=== PATIENT | male | born 1940 | race Caucasian/White ===

== ENCOUNTER → 2016-04-19 | Outpatient (CLI) | payer MEDICARE, MEDICAID ==
--- NOTE | 2016-04-19 11:15 | ST Modified Barium Swallow ---
Recommendation - Recommendations Recommendations: 1) DIET: Mechanical soft solids and thin liquids. 2) STRATEGIES: Alternate bites and sips. 3) Follow-up with treating speech therapist. 4) Follow-up with referring MD. SUMMARY: Pt presents with a mild- moderate pharngeal dysphagia characterized by reduced epiglottic inversion, reduced hyolaryngeal excursion, and reduced laryngeal elevation resulting in mild residuals in the valleculae. Residuals in valleculae observed to clear with alternating bites and sips. Pt reported sensation of residuals and also able to clear with mulitple independently initiated swallows. Pt frequently reported sticking in chest and neck with no radiographic findings of residuals in pharyngeal cavity or in esophagus-per RA. Pt also presented with change in vocal quality with no instances of penetration or aspiration observed. Medical Diagnoses - Medical Diagnoses Medical Diagnosis Description & ICD-10 Code(s): dysphagia Other Medical Diagnoses/Co-Morbidities: cva, hiatal hernia, hunter's esophagus - ICD-10 Tx Diagnosis Coding (1) Dysphagia, oropharyngeal phase ICD-10 Code(s): R13.12 - DYSPHAGIA, OROPHARYNGEAL PHASE (2) Dysphagia, pharyngeal phase ICD-10 Code(s): R13.13 - DYSPHAGIA, PHARYNGEAL PHASE (3) Dysphagia, pharyngoesophageal phase ICD-10 Code(s): R13.14 - DYSPHAGIA, PHARYNGOESOPHAGEAL PHASE ST Modified Barium Swallow - General Date: 04/19/16 Referring Physician: Dr Vergara Risks/Precautions: Falls - using hospital wheelchair Date of Onset: 04/19/13 Reason for Referral: dysphagia - History History obtained from: Patient -: Medical - Pt reports coughing and choking on solids and liquids, endorses globus sensation in lower neck and chest. Reports history of PNA x3, most recent approximately 1 week ago. Pt also reports bronchitis "several times." Pt reports onset of swallowing symptoms began approximately 2-3 years ago. Pt reports eating only soft foods at home. Pt states does not eat meats whole and does not eat bread. 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 Medications: alphagan, aspirin, combivent, docusate sodium, eliquis, escitalopram, incruse ellipta, lansoprazole, levothyroxine, multiple vitamins, nu-iron, oxycodone-acetaminophen. Allergies: erythromycin, tamsulosin - Functional Status Prior Functional Status: INDEPENDENT: feeding Current Functional Limitations: feeding - Subjective Patient/caregiver goal(s): safe swallow, r/o aspiration Cognitive-Linguistic Function: Functional Speech Intelligibility: Moderately dysarthric Current Nutritional Means: PO Current PO diet: Mechanical- ground Current symptoms: Coughing, Pneumonia, c/o Globus sensation Pain: 5/5 - arthritis-all over - Objective Assessment: Upright, Left Lateral - Food Trials Used Food trials used: Thin liquids, Pureed, Soft solids The patient: Was Able to Self Feed - Oral-Motor Skills Dentition: Edentulous Velo-pharyngeal function: Unremarkable Laryngeal Function: Volitional Cough, Volitional Swallow - Assessment Oral prep: Adeq, for consist. tested Labial closure: Adequate Leakage: None Mastication: Adequate Lingual Movement: Normal Oral stage: Normal for this Procedure - Pharyngeal Stage Initiation of Pharyngeal Stage Reflex: Normal Decreased laryngeal elevation: Yes - moderate-severe Reduced Velopharyngeal Closure: no Reduced pressure generation: No reduced tongue-based retraction: No Pre-swallow pooling in valleculae: None Pre-Swallow pooling in pyriforms: None Reduced Thyro-Hyoid approximation: Yes - mod-severe Reduced epiglottic excursion: Yes - significant Reduced pharyngeal peristalsis/contraction: No Post-swallow residulas vallecular: Mild - on puree and soft solids Post-Swallow residuals in pyriforms: None - Fall Risk Assessment Medications/Conditions that increase fall risks include: Antidepressants, sedatives, anti-arrhythmic, diuretic, benzodiazipenes, neuroleptics. BP regulation problems, cardiac problems, balance or gait deficits, neurological problems. Is patient considered at risk for falls: yes Fall Risk Actions Taken: Pt physician notified - Behavioral Observations During evaluation process patient: was pleasant, was cooperative, able to answer questions, provided medical history - Treatment / Educational Needs: Treatment/Education Needs: Treatment consisted of patient education on the role of the Speech Pathologist. Patient's plan of care and golas were communicated as well as scheduling and attendance policies. Recommendations for initial home program were shared. Patient demonstrated understanding and verbalized agreement. Initial home program recommendations: Pt and pt's provided with verbal and written education on aspiration PNA, dysphagia, oral care, reflux precautions, and recommended strategies for safe feeding. - Impression/Summary Laryngeal Penetration: No Tracheal Aspiration: no Patient presents with: Pharyngeal stage dysph., Oral-Pharyngeal dysph. Risk of Aspiration: Mild - Recommendations NPO: no Solid diet recommendations: Mechanical Soft, Ground Meat Liquid Diet Modification: Thin Strict aspiration precautions: Yes Pt/Family education and followup with MD: Yes Dysphagia therapy with [employer]: yes, f/u with current thera. Recommended techniques: Fully Upright During Meal, Alternate Bites/Sips Information, Precautions and Recommendations: Patient (Written), Patient (Verbal ), Family Member (Written), Family Member (Verbal) - Time Total Time: 25 - Plan of Care Strategies to optimize patient understanding include:: ongoing assessment of educational needs, implementation of educational strategies, and re-education. - - -: Thank you for the opportunity to work with this patient and his/her family. Should you have any questions about this patient's plan or progress, I can be reached at [phone]. Charge G Code? - - -: Yes ST F.L. Impairment Category - Rationale Based On Rationale Based On: Clin Find., Obj Measures - Swallowing Current G8996: CK 40-59% Impaired Goal G8997: CJ 20-39% Impaired
== END ==
LOC: RAD 08:27
PROVIDERS: ATTEND Internal Medicine
DX: R13.12 Dysphagia, oropharyngeal phase (principal); K44.9 Diaphragmatic hernia without obstruction or gangrene; R49.0 Dysphonia
CPT/HCPCS: 74230; 92611; G8996; G8997

== ENCOUNTER → 2017-11-09 | Outpatient (CLI) | payer MEDICARE, MEDICAID ==
--- NOTE | 2017-11-09 16:12 | RADIOLOGY REPORT (SQ) ---
EXAM DESCRIPTION: CHEST PA/LATERAL COMPLETED DATE/TIME: 11/09/2017 2:40 pm REASON FOR STUDY: PNEUMOTHORAX J93.9 PNEUMOTHORAX, UNSPECIFIED COMPARISON: 03/05/2014 NUMBER OF VIEWS: Two view. TECHNIQUE: Frontal and lateral radiographic views of the chest acquired. LIMITATIONS: None. FINDINGS: LUNGS AND PLEURA: Basilar and apical scarring. No pneumothorax. No pleural effusion. Atte nuated blood vessels and flattened elfego-diaphragms. MEDIASTINUM AND HILAR STRUCTURES: No masses. No contour abnormalities. HEART AND VASCULAR STRUCTURES: Heart normal in size and contour. No evidence for failure. BONES: No acute findings. HARDWARE: None in the chest. OTHER: No other significant finding. IMPRESSION: COPD. NO ACUTE RADIOGRAPHIC FINDING IN THE CHEST. TECHNICAL DOCUMENTATION: JOB ID: [id number] [employer]- All Rights Reserved Reading location - IP/workstation name: [email or web address]
== END ==
LOC: OD 14:31
PROVIDERS: ATTEND Nurse Practitioner
DX: J93.9 Pneumothorax, unspecified (principal)
CPT/HCPCS: 71046

== ENCOUNTER → 2018-01-23 | Outpatient (CLI) | payer MEDICARE, MEDICAID ==
[2018-01-23 13:26] LABS: ABSOLUTE EOSINOPHILS # (AUTO) 0.1 10^3/uL (0.0-0.6); ABSOLUTE LYMPHOCYTES (AUTO) 1.6 10^3/uL (0.5-4.7); ABSOLUTE MONOCYTES (AUTO) 0.3 10^3/uL (0.1-1.4); ABSOLUTE NEUT (AUTO) 3.5 10^3/uL (1.7-8.2); BASOPHILS % (AUTO) 0.4 % (0-2); HEMATOCRIT 37.9 % (37.9-51.0); HEMOGLOBIN 13.1 g/dL (13.5-17.0); LYMPHOCYTES % (AUTO) 28.5 % (13-45); MEAN CORPUSCULAR HGB CONC 34.5 g/dL (32.0-36.0); MEAN CORPUSCULAR VOLUME 84 fl (80-97); MONOCYTES % (AUTO) 6.1 % (3-13); PLATELET COUNT 190 10^3/uL (150-450); RED CELL DISTRIBUTION WIDTH 19.3 % (11.5-14.0); TOTAL CELLS COUNTED % (AUTO) 100 %; WHITE BLOOD COUNT 5.5 10^3/uL (4.0-10.5)
[2018-01-23 14:05] LABS: ERYTHROCYTE SEDIMENTATION RATE 27 mm/hr (0-20)
== END ==
LOC: OD 12:34
PROVIDERS: ATTEND Otolaryngology
DX: T70.0XXA Otitic barotrauma, initial encounter (principal)
CPT/HCPCS: 36415; 85025; 85652; 86141